=== PATIENT | male | born 1995 | race Caucasian/White ===

== ENCOUNTER 2021-07-13 10:02 | Emergency (ER) | payer OTHER, SELFPAY ==
--- NOTE | ~2021-07-13 | XR_ITS ---
XR hand RT min 3V DATE: 07/13/2021 10:24 INDICATION: Injury, pain following object dropped on second and third digits. Laceration third digit. TECHNIQUE: 3 views COMPARISON: None FINDINGS: No fracture or dislocation, periosteal reaction or bone destruction, radiopaque soft tissue foreign body is detected. There is a soft tissue laceration at the anterolateral mid second digit. Joint spaces are preserved. No erosive changes. IMPRESSION: Laceration at the anterolateral mid second digit; no radiopaque foreign body, fracture or dislocation Reviewed, dictated and finalized at location A. IMPRESSION: Laceration at the anterolateral mid second digit; no radiopaque for eign body, fracture or dislocation
[2021-07-13 10:07] VITALS: BP 93/43; PULSE 54; RESP 17; TEMP 36.3; O2SAT 100
--- NOTE | 2021-07-13 10:19 | ED.GENADULT ---
HPI - General Adult General Chief complaint: Wound/Laceration Stated complaint: hand injury Time Seen by Provider: 07/13/21 10:14 Source: patient Mode of arrival: ambulatory Limitations: no limitations History of Present Illness HPI narrative: 25-year-old male presents today with complaints of laceration to right second and third digit caused by a hydraulic cylinder that fell on his hand. Patient has full range of motion but does note decreased sensation. Denies any pain at this time. Bleeding is controlled. Unknown tetanus. Related Data Allergies Allergy/AdvReac Type Severity Reaction Status Date / Time No Known Allergies Allergy Verified 07/13/21 10:07 Review of Systems Review of Systems: CONSTITUTIONAL: Denies fever, chills, or sweats. EYES: Denies visual changes, redness, or discharge. ENT: Denies rhinorrhea, congestion, sore throat, or otalgia. CARDIOVASCULAR: Denies chest pain, palpitations, or edema. RESPIRATORY: Denies cough or dyspnea. GASTROINTESTINAL: Denies abdominal pain, nausea, vomiting, or diarrhea. GENITOURINARY: Denies dysuria or hematuria. SKIN: Laceration to second and third digit. Denies rash or itching. MUSCULOSKELETAL: Denies back pain, joint pain, or myalgia. NEUROLOGIC: Denies headache, numbness, dizziness, or weakness. PSYCHIATRIC: Denies anxiety or depression. Exam Narrative: GENERAL: Well-appearing, well-nourished, and in no acute distress. HEAD: Normocephalic, atraumatic. EYES: PERRLA and EOMI. NECK: Supple. No adenopathy or masses. No carotid bruits or JVD CHEST: Clear to auscultation. No respiratory distress. No wheezes rales or rhonchi HEART: Regular rate and rhythm. No murmur heard. Normal peripheral pulses. ABDOMEN: Soft, nontender, nondistended, normal active bowel sounds. EXTREMITIES: Normal range of motion. No edema. SKIN: Laceration to the second and third digits on the palmar side. Full range of motion noted. Sensation intact. Warm, dry, no rash. NEURO: No focal deficits. Alert and oriented x3. PSYCH: Normal mood and affect. Course Course Emergency Course: Lacerations repaired without difficulty. Care reviewed with patient. Patient aware to keep dressing on for 24 hours. After that he may remove dressing wash twice a day apply bacitracin and cover. Patient aware to keep wound clean. Patient struck to follow-up with Dr. Self for further care. Aware to remove sutures and 1 week. All questions answered. Mom in room at time of consultation for discharge. Vital Signs Vital signs: Vital Signs Temperature 36.3 C L 07/13/21 10:07 Pulse Rate 54 L 07/13/21 10:07 Respiratory Rate 17 07/13/21 10:07 Blood Pressure 93/43 L 07/13/21 10:07 Pulse Oximetry 100 07/13/21 10:07 Temperature 36.3 C L 07/13/21 10:07 Pulse Rate 60 07/13/21 12:02 Respiratory Rate 12 07/13/21 12:02 Blood Pressure 125/81 07/13/21 12:02 Pulse Oximetry 99 07/13/21 12:02 Procedures Laceration Laceration 1: Date: 07/13/21 Time: 11:30 Site: hand (2nd digit palmar side) Side (If applicable): right Size (cm): 1.5 Description: linear Depth: simple, single layer (wound deep able to see tendon but no damage noted. patient with full range of motion. ) Local Anesthetic: lidocaine 1% (digital block) Amount of anesthesia used (mL): 1 Pre-repair: wound explored and irrigated ====== Skin Level ====== Skin layer closed with: nylon Size (cm): 5-0 Number of sutures: 3 Technique: simple, interrupted ====== Subcutaneous Layer ====== ====== Muscle Layer ====== ====== Tendon Layer ====== Dressing: bulky dressing applied to limit movement Laceration 2: Date: 07/13/21 Time: 11:30 Site: hand (3rd digit palmar side) Side (If applicable): right Size (cm): 0.5 Description: linear Depth: simple, single layer Local A
[2021-07-13] MEDS: TETANUS,DIPHTHERIA,AC PERTUSSIS ADULT (0.5 ML) BOOSTRIX IM (10:28)
[2021-07-13 12:02] VITALS: BP 125/81; PULSE 60; RESP 12; O2SAT 99
== END 2021-07-13 12:05 | disposition home or self-care (01) ==
LOC: ANHED 10:35
PROVIDERS: Emergency Provider Nurse Practitioner Family
DX: S61.210A Laceration without foreign body of right index finger without damage to nail, initial encounter (principal); S61.212A Laceration without foreign body of right middle finger without damage to nail, initial encounter; Z23 Encounter for immunization; W20.8XXA Other cause of strike by thrown, projected or falling object, initial encounter
CPT/HCPCS: 12001; 73130; 90471; 90715; 99283